=== PATIENT | female | born 1975 | race Caucasian/White ===

== ENCOUNTER 2019-03-03 23:42 | Emergency (ER) | payer SELFPAY ==
--- NOTE | 2019-03-03 23:49 | ER Document Report ---
ED Medical Screen (RME) - General Stated Complaint: BLOOD SUGAR ISSUE Time Seen by Provider: 03/03/19 23:48 Notes: Patient is a 44-year-old female presents emergency department with a chief complaint of her blood sugar being over 600. She has liver cancer. She curren tly takes Lantus 34 units. She denies any other symptoms at this time.\ Exam: Nontender abdomen I have greeted and performed a rapid initial assessment of this patient. A comprehensive ED assessment and evaluation of the patient, analysis of test results and completion of medical decision making process will be conducted by an additional ED providers.
[2019-03-03] MEDS ORDERED: NORMAL SALINE 1000 ML 1,000 ML IV ONE (23:56)
[2019-03-03] MEDS ORDERED: NORMAL SALINE 1000 ML 2,000 ML IV ONE (23:57)
[2019-03-04] MEDS ORDERED: INSULIN REG, HUMAN 100 UNIT/ML 3 ML VIAL (PYX) SUBCUT ONE ×4 (00:46→04:44)
[2019-03-04] MEDS ORDERED: NORMAL SALINE 1000 ML 1,000 ML IV ONE (00:47)
--- NOTE | 2019-03-04 00:52 | ER Document Report ---
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 Today patient noticed her sugars were running very high. She says her sugar was over 600 on her Accu-Chek at home and therefore she came to the ER. No fevers. No vomiting. No diarrhea. No abdominal pain. Her heart rate is low but high but patient says her heart rate usually runs just over 100. Her parents also mentioned that on her most recent labs her cell counts have been running low. She is currently receiving chemotherapy. She also recently received steroids through her medication pump that goes into her liver. She takes Lantus 34 units a day. She also takes metformin. No other medications for diabetes. She is followed by [facility] in [place] for treatment of her cancer. She is from [place] and currently visiting her family. - Related Data Allergies/Adverse Reactions: amoxicillin Allergy (Verified 03/04/19 01:02) bee venom protein (honey bee) Allergy (Verified 03/04/19 01:02) clindamycin Allergy (Verified 03/04/19 01:02) codeine Allergy (Verified 03/04/19 01:02) divalproex sodium [From Depakote] Allergy (Verified 03/04/19 01:02) hydrocodone Allergy (Verified 03/04/19 01:02) lamotrigine [From Lamictal] Allergy (Verified 03/04/19 01:02) lithium Allergy (Verified 03/04/19 01:02) Penicillins Allergy (Verified 03/04/19 01:02) risperidone [From Risperdal] Allergy (Verified 03/04/19 01:02) shellfish derived Allergy (Verified 03/04/19 01:02) Past Medical History - Social History Smoking Status: Never Smoker Frequency of alcohol use: None Drug Abuse: None Family History: Reviewed & Not Pertinent Review of Systems - Review of Systems Notes: My Normal Review Basic REVIEW OF SYSTEMS: CONSTITUTIONAL : Denies fever, chills, or sweats. Denies recent illness. EENT: Denies eye, ear, throat, or mouth pain or symptoms. Denies nasal or sinus congestion. CARDIOVASCULAR: Denies chest pain. RESPIRATORY: Denies cough, cold, or chest congestion. Denies shortness of breath, difficulty breathing, or wheezing. GASTROINTESTINAL: Denies abdominal pain. Denies nausea, vomiting, or diarrhea. Denies constipation. Last BM: GENITOURINARY: Denies difficulty urinating, painful urination, burning, frequency, or blood in urine. MUSCULOSKELETAL: Denies neck or back pain or joint pain or swelling. SKIN: Denies rash or skin lesions. NEUROLOGICAL: Denies altered mental status or loss of consciousness. Denies headache. Denies weakness or paralysis or loss of use of either side. Denies problems with gait or speech. Denies sensory or motor loss. ALL OTHER SYSTEMS REVIEWED AND NEGATIVE. Physical Exam - Vital signs Vitals: Temp Pulse Resp BP Pulse Ox 98.3 F 132 H 28 H 145/90 H 96 03/03/19 23:55 03/03/19 23:55 03/03/19 23:55 03/03/19 23:55 03/03/19 23:55 - Notes Notes: General Appearance: Well nourished, alert, cooperative, no acute distress, no obvious discomfort. Vitals: reviewed, See vital signs table. Head: no swelling or tenderness to the head Eyes: PERRL, EOMI, Conjuctiva clear Mouth: No decreasd moisture Throat: No tonsillar inflammation, No airway obstruction, No lymphadenopathy Neck: Supple, no neck tenderness, No thyromegaly Lungs: No wheezing, No rales, No rhonci, No accessory muscle use, good air exchange bilaterally. Heart: Normal rate, Regular rythm, No murmur, no rub Abdomen: Normal BS, soft, No rigidity, No abdominal tenderness, No guarding, no rebound, no abdominal masses, no organomegaly Extremities: good pulses in all extremities, no swelling or tenderness in the extremities, no edema. Skin: warm, dry, appropriate color, no rash Neuro: speech clear, oriented x 3, normal affect, responds appropriately to questions. Course - Re-evaluation Re-evalutation: 03/04/19 06:29 Patient's blood sugars continue to downtrend appropriately. At this point she wants to go home she will continue to check blood sugars at home. I will prescribe her sliding scale insulin. She says it might be hard for her to get sliding scale insulin because she has [id number] insurance however her family member in the room uses the same insulin for sliding scale. He said he be willing to share with her for next few days. She does take Lantus 34 units at night. I encouraged her to do 20 units of Lantus in the morning if her blood sugars over 120 the morning. This will help further stabilize her sugar. I encouraged her to continue take her metformin. I did speak with Dr. Richter who is oncologist covering for Dr. Jesus. Dr. Jesus is her oncologist. She has an appointment with them on Wednesday. He said he will contact office to make sure they repeat her labs when she is to their office this coming week. He has no further recommendations at this time and agrees with plan of work-up performed here. I informed patient to have low threshold to return to ER if she continues to have increasing blood sugars despite taking the insulin at home, she feels unwell, or if she has any further concerns. Patient agrees with plan and will be discharged home. Dictation of this chart was performed using voice recognition software; therefore, there may be some unintended grammatical errors. - Vital Signs Vital signs: Temp Pulse Resp BP Pulse Ox 98.3 F 132 H 22 H 140/75 H 95 03/03/19 23:55 03/03/19 23:55 03/04/19 05:02 03/04/19 05:02 03/04/19 05:02 - Laboratory Result Diagrams: 03/04/19 00:46 03/04/19 00:46 Laboratory results interpreted by me: 03/04/19 03/04/19 03/04/19 00:15 00:46 00:46 RBC 2.86 L Hgb 9.8 L Hct 29.4 L MCV 103 H MCH 34.3 H RDW 19.0 H Plt Count 53 L VBG pH VBG pCO2 Sodium 133.4 L Chloride 97 L Glucose 706 H* POC Glucose Direct Bilirubin 0.9 H Alkaline Phosphatase 270 H Urine Glucose (UA) >=500 H 03/04/19 03/04/19 03/04/19 01:10 02:09 03:30 RBC Hgb Hct MCV MCH RDW Plt Count VBG pH 7.47 H VBG pCO2 33.5 L Sodium Chloride Glucose POC Glucose > 550 H* 513 H* Direct Bilirubin Alkaline Phosphatase Urine Glucose (UA) 03/04/19 03/04/19 04:40 05:39 RBC Hgb Hct MCV MCH RDW Plt Count VBG pH VBG pCO2 Sodium Chloride Glucose POC Glucose 448 H* 406 H* Direct Bilirubin Alkaline Phosphatase Urine Glucose (UA) Discharge - Discharge Clinical Impression: Hyperglycemia Condition: Good Disposition: HOME, SELF-CARE Additional Instructions: I suspect your blood sugars are running high being that you are receiving the steroids. This is a common reaction to steroids. I have started you on a sliding scale insulin. Please take it as prescribed. Please check your sugars before meals and before going to bed at night to determine how many units to give yourself based on your sliding scale. Please continue to take your Lantus to 4 units at night. In the morning check your sugar. If your blood sugar is above 120 then give yourself an additional 20 units of Lantus in the morning. If your blood sugar is below 80 then you should eat a piece of bread or drink some juice. I did speak with Dr. Richter who is covering for Dr. Jesus. He says they will contact you to make sure they prefer labs at your upcoming appointment. Prescriptions: Insulin Lispro [Humalog Insulin (Lispro) 100 unit/mL] 0 unit SUBCUT .SLD SCALE #10 ml Pen Needle, Diabetic [Insulin Pen Needle] 1 each MC ASDIR PRN #100 dis.needle PRN Reason: Syring-Needl,Disp,Insul,0.3 ml [Insulin Syringe 0.3 mL] 1 syr MC ASDIR PRN #100 syringe PRN Reason:
[2019-03-04 01:06] LABS: ABSOLUTE LYMPHOCYTES (AUTO) 0.6 10^3/uL (0.5-4.7); ABSOLUTE MONOCYTES (AUTO) 0.3 10^3/uL (0.1-1.4); ABSOLUTE NEUT (AUTO) 3.3 10^3/uL (1.7-8.2); BASOPHILS % (AUTO) 0.9 % (0-2); EOSINOPHILS % (AUTO) 0.1 % (0-6); HEMATOCRIT 29.4 % (36.0-47.0); HEMOGLOBIN 9.8 g/dL (12.0-15.5); LYMPHOCYTES % (AUTO) 13.4 % (13-45); MEAN CORPUSCULAR HEMOGLOBIN 34.3 pg (27.0-33.4); MEAN CORPUSCULAR HGB CONC 33.4 g/dL (32.0-36.0); MEAN CORPUSCULAR VOLUME 103 fl (80-97); RED BLOOD COUNT 2.86 10^6/uL (3.72-5.28); SEGMENTED NEUTROPHILS % (AUTO) 77.6 % (42-78); TOTAL CELLS COUNTED % (AUTO) 100 %; WHITE BLOOD COUNT 4.2 10^3/uL (4.0-10.5)
[2019-03-04 01:13] LABS: APPEARANCE,URINE CLEAR; BILIRUBIN,URINE NEGATIVE (NEGATIVE); COLOR,URINE STRAW; GLUCOSE, URINE >=500 mg/dL (NEGATIVE); KETONES,URINE NEGATIVE (NEGATIVE); LEUKOCYTE ESTERASE,URINE NEGATIVE (NEGATIVE); NITRITE,URINE NEGATIVE (NEGATIVE); PROTEIN,URINE NEGATIVE (NEGATIVE); URINE SPECIFIC GRAVITY 1.027; UROBILINOGEN,URINE NEGATIVE mg/dL (<2.0)
[2019-03-04 01:22] LABS: ALANINE AMINOTRANSFERASE 29 U/L (9-52); ALBUMIN 3.8 g/dL (3.5-5.0); ALKALINE PHOSPHATASE 270 U/L (38-126); ANION GAP 13 (5-19); ASPARTATE AMINO TRANSFERASE 34 U/L (14-36); BILIRUBIN,DIRECT 0.9 mg/dL (0.0-0.4); BILIRUBIN,TOTAL 1.2 mg/dL (0.2-1.3); BLOOD UREA NITROGEN 18 mg/dL (7-20); CALCIUM 9.3 mg/dL (8.4-10.2); CARBON DIOXIDE 23 mmol/L (22-30); CHLORIDE 97 mmol/L (98-107); POTASSIUM 4.2 mmol/L (3.6-5.0); SODIUM 133.4 mmol/L (137-145); TOTAL PROTEIN 7.3 g/dL (6.3-8.2)
[2019-03-04 01:25] LABS: VENOUS BLOOD BASE EXCESS 0.4 mmol/L; VENOUS BLOOD HCO3 23.7 mmol/L (20-32); VENOUS BLOOD PCO2 33.5 mmHg (35-63); VENOUS BLOOD PH 7.47 (7.30-7.42)
[2019-03-04 01:32] LABS: GLUCOSE 706 mg/dL (75-110)
[2019-03-04 01:48] LABS: PLATELET COUNT 53 10^3/uL (150-450)
[2019-03-04 05:27] VITALS: BP 140/75
--- NOTE | 2019-03-04 12:10 | EKG REPORT ---
SEVERITY:- OTHERWISE NORMAL ECG - SINUS TACHYCARDIA : Confirmed by: Kelley Alcazar MD 04-Mar-2019 12:09:38
== END 2019-03-04 06:42 | disposition home or self-care (01) ==
LOC: ER 23:42
DX: R73.9 Hyperglycemia, unspecified (principal); Z79.4 Long term (current) use of insulin; Z79.84 Long term (current) use of oral hypoglycemic drugs; C24.0 Malignant neoplasm of extrahepatic bile duct; C78.7 Secondary malignant neoplasm of liver and intrahepatic bile duct; Z79.899 Other long term (current) drug therapy; Z88.0 Allergy status to penicillin; Z91.030 Bee allergy status; Z88.1 Allergy status to other antibiotic agents; Z88.5 Allergy status to narcotic agent; Z88.8 Allergy status to other drugs, medicaments and biological substances; Z91.013 Allergy to seafood
CPT/HCPCS: 93005; 99283; 36415; 82962; 85025; 80053; 81001; 82803; 93010; J1815; J7030